=== PATIENT | male | born 1965 | race Caucasian/White ===

== ENCOUNTER 2018-04-02 11:39 | Inpatient (IN) | payer MEDICAID, OTHER ==
[~2018-04-02] VITALS: Ht 167.6 cm; Wt 56.0 kg
[2018-04-02 12:13] LABS: Urine Bacteria NONE SEEN /hpf (None Seen); Urine Blood Negative /uL (Negative); Urine Hyaline Cast FEW /lpf (0 - 2); Urine Mucus FEW (None Seen); Urine Specific Gravity 1.029 (1.001-1.035); Urine WBC 1 /hpf (0 - 3)
[2018-04-02 13:31] LABS: Hematocrit 44.3 % (41.0-53.0); Mean Corpuscular Hemoglobin 33.9 pg (28.0-32.0); Mean Corpuscular Hgb Conc. 33.9 g/dL (32.0-36.0); Mean Corpuscular Volume 100.2 fL (80.0-100.0); Platelet Count (auto) 327 10^3/uL (140-450); Red Blood Cells 4.42 10^6/uL (4.5-5.90); Red Cell Distribution Width 13.1 % (11.8-14.3); White Blood Cell 8.6 10^3/uL (4.4-10.8)
[2018-04-02 13:42] LABS: Basophils % (manual) 0 (0.0-2.0); Blast Cells 0; Myelocytes % 0; Promyelocytes % 0; Reactive Lymphocytes 0
[2018-04-02 13:44] LABS: Albumin 2.6 g/dL (3.4-5.0); BUN/Creatinine Ratio 12.7; Calcium 8.7 mg/dL (8.5-10.1); Potassium 4.3 mmol/L (3.5-5.1)
[2018-04-02 13:47] LABS: Bilirubin, Total 0.3 mg/dL (0.2-1.0); Total Protein 6.6 g/dL (6.4-8.2)
[2018-04-02 14:02] LABS: Band Neutrophils % (manual) 14; Eosinophils % (manual) 4 (0-7); Lymphocytes % (manual) 19 (10.0-50.0); Metamyelocytes % 1; Monocytes % (manual) 14 (0-12)
[2018-04-02] MEDS ORDERED: cefTRIAXone 1GM/50ML D5W 50 ML IV ONE (20:30)
[2018-04-02] MEDS ORDERED: metroNIDAZOLE 500MG/100ML 100 ML IV ONE (20:30)
[2018-04-02] MEDS ORDERED: ONDANSETRON HCL 4 MG/2 ML VIAL IV PRN (21:15)
[2018-04-02] MEDS ORDERED: MORPHINE SULFATE 4 MG/ML SYR/VIAL IV PRN (21:15)
[2018-04-02] MEDS ORDERED: PANTOPRAZOLE 40 MG/10 ML VIAL IV ONE (21:15)
[2018-04-02] MEDS ORDERED: ACETAMINOPHEN 325 MG TAB PO PRN (21:15)
[2018-04-02] MEDS ORDERED: HYDROcodone-ACET 5/325MG TAB PO PRN (21:15)
[2018-04-02] MEDS ORDERED: NITROGLYCERIN 0.4 MG SL TAB SL PRN (21:15)
[2018-04-02] MEDS: TEMAZEPAM 15 MG CAP PO PRN (22:30)
[2018-04-02 22:44] VITALS: BP 129/83
[2018-04-03] MEDS ORDERED: THIA100T5 PO (00:34)
[2018-04-03] MEDS ORDERED: MULT-228 PO (00:34)
[2018-04-03] MEDS ORDERED: NIC21P TOP (00:34)
[2018-04-03] MEDS ORDERED: FOLI1TAB6 PO (00:34)
[2018-04-03] MEDS ORDERED: FLAX100024 PO (00:34)
[2018-04-03] MEDS ORDERED: LEVO750T64 PO (00:34)
[2018-04-03] MEDS ORDERED: GLUC500T48 PO (00:34)
[2018-04-03 04:45] VITALS: BP 109/64
[2018-04-03] MEDS: metroNIDAZOLE 500MG/100ML 100 ML IV SCH ×3 (05:30→21:26)
[2018-04-03 05:55] LABS: Hematocrit 41.7 % (41.0-53.0); Hemoglobin 14.4 g/dL (13.5-17.5); Mean Corpuscular Hgb Conc. 34.5 g/dL (32.0-36.0)
[2018-04-03 05:57] LABS: Mean Corpuscular Hemoglobin 34.2 pg (28.0-32.0); Mean Corpuscular Volume 99.3 fL (80.0-100.0); Platelet Count (auto) 324 10^3/uL (140-450); Red Cell Distribution Width 12.9 % (11.8-14.3); White Blood Cell 6.4 10^3/uL (4.4-10.8)
[2018-04-03 06:03] LABS: Basophils % (manual) 0 (0.0-2.0); Blast Cells 0; Metamyelocytes % 0; Myelocytes % 0; Promyelocytes % 0; Reactive Lymphocytes 0
[2018-04-03 06:33] LABS: Potassium 4.1 mmol/L (3.5-5.1)
[2018-04-03 06:43] LABS: Albumin 2.4 g/dL (3.4-5.0); BUN/Creatinine Ratio 11.1; Bilirubin, Total 0.5 mg/dL (0.2-1.0); Calcium 8.7 mg/dL (8.5-10.1); Total Protein 5.9 g/dL (6.4-8.2)
[2018-04-03 06:52] LABS: Band Neutrophils % (manual) 6; Eosinophils % (manual) 5 (0-7); Lymphocytes % (manual) 21 (10.0-50.0); Monocytes % (manual) 26 (0-12)
[2018-04-03 08:00] VITALS: BP 109/64
[2018-04-03] MEDS: PANTOPRAZOLE 40 MG/10 ML VIAL IV SCH (09:45)
[2018-04-03] MEDS: cefTRIAXone 1GM/50ML D5W 50 ML IV SCH (09:45)
[2018-04-03] MEDS ORDERED: GOLYTELY 4L KIT PO ONE (12:45)
[2018-04-03 13:00] VITALS: BP 122/82
[2018-04-03 16:46] VITALS: BP 120/83
[2018-04-03] MEDS: TEMAZEPAM 15 MG CAP PO PRN (21:26)
[2018-04-03 22:16] VITALS: BP 109/68
[2018-04-04 05:02] VITALS: BP 122/73
[2018-04-04] MEDS: metroNIDAZOLE 500MG/100ML 100 ML IV SCH (05:45)
[2018-04-04] MEDS ORDERED: GOLYTELY 4L KIT PO ONE (06:00)
[2018-04-04 08:04] LABS: Partial Thromboplastin Time 26.7 sec (23.78-33.04); Prothrombin Time 10.7 sec (9.27-12.13)
[2018-04-04 08:13] VITALS: BP 107/82
[2018-04-04] MEDS ORDERED: SODIUM CHLORIDE LOCK 10 ML ONE (08:15)
[2018-04-04] MEDS ORDERED: diphenhdrAMINE 50mg/ml (500mg/10ml VIAL) ONE (08:15)
[2018-04-04] MEDS: cefTRIAXone 1GM/50ML D5W 50 ML IV SCH (09:35)
[2018-04-04] MEDS: PANTOPRAZOLE 40 MG/10 ML VIAL IV SCH (09:35)
[2018-04-04 12:35] VITALS: BP 93/65
[2018-04-04] MEDS: MIDAZOLAM HCL 5 MG/ML-1ML VIAL ONE ×3 (14:11→14:17)
[2018-04-04] MEDS: fentaNYL CITRATE 100 MCG/2 ML VL ONE ×2 (14:11→14:14)
[2018-04-04 16:06] VITALS: BP 126/78
[2018-04-04] MEDS ORDERED: metroNIDAZOLE 500MG/100ML 100 ML IV SCH (17:00)
== END 2018-04-04 19:00 | disposition home or self-care (01) | DRG 248 ==
LOC: ER 11:43 → OVERFLOW 11:44 → WEST WING 21:40
PROVIDERS: ADMIT Nurse Practitioner; ATTEND Internal Medicine Pulmonary Disease
PROC: 0DBE8ZX Excision of Large Intestine, Via Natural or Artificial Opening Endoscopic, Diagnostic (ICD-10-PCS; principal; 2018-04-04 14:10)
DX: A04.9 Bacterial intestinal infection, unspecified (principal); E43 Unspecified severe protein-calorie malnutrition; K76.0 Fatty (change of) liver, not elsewhere classified; F17.200 Nicotine dependence, unspecified, uncomplicated; K64.8 Other hemorrhoids; Z82.49 Family history of ischemic heart disease and other diseases of the circulatory system; Z86.19 Personal history of other infectious and parasitic diseases; Z87.11 Personal history of peptic ulcer disease
CPT/HCPCS: 36415; 45380; 71045; 74176; 80053; 80320; 81001; 82150; 83690; 85007; 85027; 85610; 85730; 86850; 86900; 86901; 87045; 87493; 87899; 93005; 94761; 96365; 96367; C9113; G0378; J0696; J1200; J2250; J3490

== ENCOUNTER 2020-09-05 19:05 | Emergency (ER) | payer MEDICAID ==
[~2020-09-05] VITALS: Ht 172.7 cm; Wt 59.0 kg
[~2020-09-05 19:05] MED LIST: FLAX100024 PO; FOLI1TAB6 PO; GLUC500T48 PO; LEVO750T64 PO; MULT-228 PO; NIC21P TOP; THIA100T5 PO
[2020-09-05 19:18] VITALS: BP 116/122
[2020-09-05] MEDS ORDERED: MORPHINE SULFATE 4 MG/ML SYR/VIAL IV ONE (19:30)
[2020-09-05] MEDS ORDERED: SODIUM CHLORIDE 0.9% 500 ML IVB ONE (19:30)
[2020-09-05] MEDS ORDERED: ONDANSETRON HCL 4 MG/2 ML VIAL IV ONE (19:30)
[2020-09-05 22:15] LABS: Basophils # (auto) 0.1 10 ^3/uL (0-0.2); Eosinophils # (auto) 0.2 10 ^3/uL (0-0.8); Hematocrit 51.2 % (41.0-53.0); Lymphocytes # (auto) 2.4 10 ^3/uL (0.4-5.4); Nucleated Red Blood Cells % 0.2 %; White Blood Cell 4.8 10^3/uL (4.4-10.8)
[2020-09-05 22:17] LABS: Basophils % (auto) 1.8 % (0.0-2.0); Eosinophils % (auto) 3.8 % (0.0-7.0); Lymphocytes % (auto) 51.3 % (10.0-50.0); Mean Corpuscular Hemoglobin 35.3 pg (28.0-32.0); Mean Corpuscular Hgb Conc. 35.2 g/dL (32.0-36.0); Mean Corpuscular Volume 100.2 fL (80.0-100.0); Monocytes # (auto) 0.5 10 ^3/uL (0-1.3); Monocytes % (auto) 11.1 % (0.0-12.0); Neutrophils # (auto) 1.5 10 ^3/uL (1.6-8.6); Platelet Count (auto) 170 10^3/uL (140-450); Red Blood Cells 5.11 10^6/uL (4.5-5.90); Red Cell Distribution Width 14.4 % (11.8-14.3)
[2020-09-05 22:25] LABS: Albumin 4.2 g/dL (3.4-5.0); BUN/Creatinine Ratio 6.7; Potassium 3.5 mmol/L (3.5-5.1)
[2020-09-05 22:28] LABS: Bilirubin, Total 0.6 mg/dL (0.2-1.0); Total Protein 7.7 g/dL (6.4-8.2)
[2020-09-05] MEDS ORDERED: MULTIPLE VITAMIN TAB PO ONE (22:45)
[2020-09-05] MEDS ORDERED: THIAMINE 100mg/ml INJ (200mg/2ml VIAL) IV ONE (22:45)
[2020-09-05] MEDS ORDERED: FOLIC ACID 1 MG TAB PO ONE (22:45)
== END 2020-09-05 22:49 | disposition home or self-care (01) ==
LOC: ER 19:05
DX: R10.9 Unspecified abdominal pain (principal); K52.9 Noninfective gastroenteritis and colitis, unspecified; F10.10 Alcohol abuse, uncomplicated; F17.210 Nicotine dependence, cigarettes, uncomplicated; I10 Essential (primary) hypertension; Z90.49 Acquired absence of other specified parts of digestive tract; Z79.899 Other long term (current) drug therapy
CPT/HCPCS: 36415; 74176; 80053; 80320; 83690; 85025; 93005